=== PATIENT | male | born 1975 | race Caucasian/White ===

== ENCOUNTER → 2018-07-21 | Day surgery (SDC) | payer OTHER ==
[~2018-07-21] VITALS: Ht 180.3 cm; Wt 88.5 kg
--- NOTE | 2018-07-21 11:36 | Operative Report ---
Operative/Inv Procedure Report Surgery Date: 07/21/18 Name of Procedure: Excision of a deep 5.5 cm lipoma subfascial intramuscular top right back trapezius Pre-Operative Diagnosis: Back lipoma Post-Operative Diagnosis: Same, deep Estimated Blood Loss: scant Surgeon/Sports Writer: Savannah LOUIS,Сергей Logan Anesthesia: local monitored anesthesi Operative/Procedure Note Note: Patient was positioned laterally with the beanbag after successful induction of Mac sedation anesthesia his right shoulder and back area were clipped prepped and draped in usual sterile fashion following the skin lines and incision was planned overlying this palpable firm round mass was injected with local anesthetic and a 5 cm incision was made with a 15 blade and deepened through the thick dermis the sparse subcutaneous fat layer and then to the fascia which was dissected off this lobulated firm lipoma which posteriorly was embedded in the muscle very densely adherent posterolaterally dissection was close to some nerves so we backed off here but we were able to remove the entire 5.5 cm mass completely without cracking into it, area was checked for hemostasis and closed in layers using 2-0 Vicryl sutures deep and followed by a running subcuticular 4 -0 Monocryl for the skin itself followed by Mastisol Steri-Strips Telfa and Tegaderm. EBL minimal lap and sponge counts correct wound expectancy clean IV fluids crystalloid complications none patient tolerated the procedure well was extubated and returned to recovery room in satisfactory condition.
== END ==
LOC: STS 00:49
DX: D21.6 Benign neoplasm of connective and other soft tissue of trunk, unspecified (principal); K21.9 Gastro-esophageal reflux disease without esophagitis
CPT/HCPCS: J0690; J2250